=== PATIENT | female | born 1935 | race Caucasian/White ===

== ENCOUNTER → 2017-01-02 | Outpatient (CLI) | payer OTHER ==
--- NOTE | 2017-01-02 13:15 | DIAGNOSTIC IMAGING REPORT ---
CHEST 2 VIEWS ROUTINE CLINICAL HISTORY: I35.1 Aortic insufficiency dyspnea COMPARISON STUDY: 07/02/2014 FINDINGS: The bones soft tissues and hemidiaphragms are normal. The cardiomediastinal silhouette is normal. The lungs are clear. The pulmonary vasculature is normal. IMPRESSION: Negative chest. The above report was generated using voice recognition software. It may contain grammatical, syntax or spelling errors. Electronically signed by: Jose Luis Tapia M.D. 01/02/2017 1:14 PM Dictated Date/Time: 01/02/2017 1:14 PM
[2017-01-02 13:32] LABS: BASO % 0.4 %; BASO ABS # 0.02 K/uL (0-0.2); COMPLETE YES; EOS % 1.1 %; HEMATOCRIT 39.5 % (37-47); LYMPH % 29.6 %; LYMPH ABS # 1.35 K/uL (1.2-3.4); MEAN CELL VOLUME 91.6 fL (80-100); MEAN CORPUSCULAR HEMOGLOBIN 29.5 pg (25-34); MEAN CORPUSCULAR HGB CONC 32.2 g/dl (32-36); MEAN PLATELET VOLUME 10.8 fL (7.4-10.4); MONO % 5.9 %; PLATELET COUNT 170 K/uL (130-400); RED BLOOD COUNT 4.31 M/uL (4.2-5.4); WHITE BLOOD COUNT 4.56 K/uL (4.8-10.8)
== END | disposition home or self-care (01) ==
LOC: C.LAB1850 12:00
PROVIDERS: ATTEND Physician Assistant
DX: I35.1 Nonrheumatic aortic (valve) insufficiency (principal); I10 Essential (primary) hypertension; R63.4 Abnormal weight loss

== ENCOUNTER 2017-09-10 16:44 | Emergency (ER) | payer OTHER ==
[~2017-09-10] VITALS: Ht 154.9 cm; Wt 63.5 kg
--- NOTE | 2017-09-10 16:58 | EMERGENCY ROOM VISIT NOTE ---
History Report prepared by Patria: Nitish Bain Under the Supervision of: Dr. Raul Grimes M.D. First contact with patient: 16:47 Stated Complaint: CHEST & L SHOULDER PAIN History of Present Illness The patient is an 82 year old female who presents to the Emergency Room with complaints of intermittent upper right back pain beginning a few days ago. The patient states she was sitting at a table today putting a puzzle together when her symptoms worsened. She notes she was moving things the other day and hit her back, and she thinks it might of caused her pain. She states she still has mild discomfort in her upper right back. The notes she was given nitroglycerin and aspirin in route, and her symptoms were slightly alleviated. The patient reports she has a history of a heart catheterization. She notes she does not take medications daily, except for aspirin. The patient states she does take herbs but cannot remember which ones. She denies blood in her urine, blood in her stool, missing a dose of aspirin, current chest pain, pain in her left shoulder, and current shortness of breath. The patient is a DNR. Source of History: patient Onset: few days ago Position: back (upper, right) Symptom Intensity: mild Timing: intermittent Modifying Factors (Relieving): other (nitroglycerin and aspirin) Associated Symptoms: + SOB (resolved with nebulizer), No chest pain Note: Denies: blood in her urine, blood in her stool, missing a dose of aspirin, current chest pain, pain in her left shoulder Review of Systems See HPI for pertinent positives and negatives. A total of ten systems were reviewed and were otherwise negative. Past Medical & Surgical Medical Problems: (1) Cataract (2) No Known Active Medical Problems Family History Patient reports no known family medical history. Social History Marital Status: single Occupation Status: retired Current/Historical Medications Scheduled Aspirin (Aspirin Ec), 81 MG PO DAILY Scheduled PRN Cyclobenzaprine Hcl (Flexeril), 1 TAB PO TID PRN for Pain Allergies Coded Allergies: No Known Allergies (Unverified , 09/16/13) Physical Exam Vital Signs Date Time Temp Pulse Resp B/P (MAP) Pulse Ox O2 Delivery O2 Flow Rate FiO2 09/10/17 18:44 36.7 58 16 179/78 98 09/10/17 18:10 58 09/10/17 18:08 64 179/78 09/10/17 17:10 36.7 09/10/17 17:04 59 16 215/86 98 Room Air 09/10/17 17:03 98 Room Air 09/10/17 17:03 98 Room Air 09/10/17 16:57 98 Room Air Physical Exam Physical Exam GENERAL: She is oriented to person, place, and time. She appears well- developed and well-nourished. She does not appear distressed. ____ HENT: Exam performed. Head: Normocephalic and atraumatic. Right Ear: External ear normal. No mastoid tenderness. Left Ear: External ear normal. No mastoid tenderness. Mouth/Throat: The oropharynx is clear and moist. No trismus in the jaw. No dental abscesses or uvula swelling. No oropharyngeal exudate or tonsillar abscesses. ____ EYES: Conjunctivae and EOM are normal. Pupils are equal, round, and reactive to light. Right eye exhibits no discharge. Left eye exhibits no discharge. No scleral icterus. ____ NECK: Normal range of motion. Neck supple. No JVD present. No spinous process tenderness present. No carotid bruit present. No rigidity. No tracheal deviation and normal range of motion present. No Brudzinski's sign and no Kernig 's sign noted. ____ CV: Normal rate, regular rhythm, normal heart sounds and intact distal pulses. There is no peripheral edema. Palpable radial pulses bue. ____ PULM/CHEST: Effort normal and breath sounds normal. No respiratory distress. No stridor. She has no wheezes. She has no rales. Chest Wall: She exhibits no tenderness. ____ ABD: The abdomen is soft. Bowel sounds are normal. She has no distension. No mass is present. There is no tenderness. There is no rebound, no guarding, no Tsang's sign and no tenderness at McBurney's point. Rovsig negative MUSC/SKEL: Normal range of motion. There is no peripheral edema or deformity. No C, T, or L-spine tenderness upon palpation. There is tenderness upon palpation to the right paraspinal thoracic muscles - reproducing the chief complaint. LYMPH: No cervical adenopathy. ____ NEURO: She is alert and oriented to person, place, and time. She has normal strength. No cranial nerve deficit or sensory deficit. Coordination and gait normal. GCS eye subscore is 4. GCS verbal subscore is 5. GCS motor subscore is 6. Cerebellar tests wnl. ____ SKIN: Skin is warm and dry. She is not diaphoretic. ____ PSYCH: She has a normal mood and affect. Her behavior is normal. Judgment and thought content normal. ____ Medical Decision & Procedures ER Provider Diagnostic Interpretation: X-ray: Per my interpretation, radiologist review. TWO VIEW CHEST CLINICAL HISTORY: Atypical chest pain. FINDINGS: PA and lateral chest radiographs are compared to study dated 01/02/2017. The heart is enlarged and there is atherosclerotic calcification of the thoracic aorta. The pulmonary vasculature is noncongested. Chronic interstitial thickening is similar to previous. No airspace consolidation or pleural effusion is identified. There is no pneumothorax. The skeletal structures are osteopenic. Degenerative change and scoliosis are noted throughout the thoracic spine. IMPRESSION: Cardiomegaly with no acute cardiopulmonary abnormality. Electronically signed by: Angelito Zurita M.D. 09/10/2017 5:30 PM Dictated Date/Time: 09/10/2017 5:29 PM Laboratory Results 09/10/17 16:25 Red Blood Count 4.15, Mean Corpuscular Volume 90.1, Mean Corpuscular Hemoglobin 30.4, Mean Corpuscular Hemoglobin Concent 33.7, Mean Platelet Volume 10.7, Neutrophils (%) (Auto) 67.8, Lymphocytes (%) (Auto) 22.2, Monocytes (%) (Auto) 8.5, Eosinophils (%) (Auto) 0.7, Basophils (%) (Auto) 0.5, Neutrophils # (Auto) 4.13, Lymphocytes # (Auto) 1.35, Monocytes # (Auto) 0.52, Eosinophils # (Auto) 0.04, Basophils # (Auto) 0.03 09/10/17 16:25 Test 09/10/17 16:25 White Blood Count 6.09 K/uL (4.8-10.8) Red Blood Count 4.15 M/uL (4.2-5.4) Hemoglobin 12.6 g/dL (12.0-16.0) Hematocrit 37.4 % (37-47) Mean Corpuscular Volume 90.1 fL (80-100) Mean Corpuscular Hemoglobin 30.4 pg (25-34) Mean Corpuscular Hemoglobin Concent 33.7 g/dl (32-36) Platelet Count 165 K/uL (130-400) Mean Platelet Volume 10.7 fL (7.4-10.4) Neutrophils (%) (Auto) 67.8 % Lymphocytes (%) (Auto) 22.2 % Monocytes (%) (Auto) 8.5 % Eosinophils (%) (Auto) 0.7 % Basophils (%) (Auto) 0.5 % Neutrophils # (Auto) 4.13 K/uL (1.4-6.5) Lymphocytes # (Auto) 1.35 K/uL (1.2-3.4) Monocytes # (Auto) 0.52 K/uL (0.11-0.59) Eosinophils # (Auto) 0.04 K/uL (0-0.5) Basophils # (Auto) 0.03 K/uL (0-0.2) RDW Standard Deviation 47.6 fL (36.4-46.3) RDW Coefficient of Variation 14.5 % (11.5-14.5) Immature Granulocyte % (Auto) 0.3 % Immature Granulocyte # (Auto) 0.02 K/uL (0.00-0.02) D-Dimer 190 ug/L FEU (0-500) Anion Gap 6.0 mmol/L (3-11) Est Creatinine Clear Calc Drug Dose 36.5 ml/min Estimated GFR () 61.4 Estimated GFR (Non- 53.0 BUN/Creatinine Ratio 16.8 (10-20) Calcium Level 9.3 mg/dl (8.5-10.1) Troponin I < 0.015 ng/ml (0-0.045) Pro-B-Type Natriuretic Peptide 736 pg/ml (0-1800) Laboratory results reviewed by me ECG Per My Interpretation Indication: back/shoulder pain Rate (beats per minute): 159 Rhythm: sinus rhythm Findings: other ([place], QRS, and QTc are all within normal limits. No ST elevation or depression) ED Course 1625: EMS had called in prior to the patient's arrival stating she was having left shoulder pain and an elevated blood pressure. There is concern for possible STEMI on the initial EKG. EKGs were faxed over from the field. I discussed the patient's case with Dr. Puga, Cardiology. He advised not to call the code STEMI and evaluate the patient when she arrives in the department. 1647: The patient was evaluated in room B08 immediately upon arrival. A complete history and physical exam was performed. Pre-hospital EKG was concerning for biphasic t-waves in lead I, and early repolarization vs ST elevation in V2-V4. Review pre-hospital EKG with Dr. Puga, Cardiology. He advised not to call the code STEMI and evaluate the patient when she arrives in the department. In department EKG showed a Sinus Rhythm with a rate of 159. [place], QRS, and QTc are all within normal limits. No ST elevation or depression. The patient is currently not reporting any pain. No code STEMI was called at this time. A cardiac work-up will be conducted now. 1759: Dr. Puga came down and evaluated the patient and EKG and agrees no STEMI. I reevaluated the patient. Her repeat blood pressure was 188/73. The patient states she does not take anything for her blood pressure. She is reporting no chest pain or shortness of breath. Her back pain got better after taking aspirin. She states she is fine and wants to go home. Her family is at bedside and agrees. The patient and her family agreed to follow up with her PCP. DISCHARGE - Plan of care discussed with patient and questions answered. The patient was given both verbal and printed discharge instructions. The patient verbalized understanding and ability to comply. The patient is to seek outpatient follow up as noted in the discharge instructions. The patient verbalized understanding and ability to comply. The patient is discharged in stable condition. The patient was instructed to return for worsening symptoms. Medical Decision vss. EMS report from the field was L shoulder pain w/ HTN and patient having cardiac history with questionable EKG. Discussed w/ interventional cath, no code STEMI to be called from field. On arrival in ED, patient not reporting any CP or SOB and PE was more consistent w/ back muscle strain. No PE risk factors. Palpable radial pulses bilateral upper extremities palpable DP and PT pulses bilateral lower extremities, no concern for dissection. No significant trauma to the back and no CT or L-spine tenderness, thus imaging of the back was deferred. EKG labs and imaging in the emergency department were within normal limits. Patient's blood pressure normalized on its own, she states she felt fine and wanted to go home. Patient was discharged in stable condition home. Medication Reconcilliation Current Medication List: was personally reviewed by me Blood Pressure Screening Patient's blood pressure: Elevated blood pressure Blood pressure disposition: Referred to PCP Consults Time Called: 1624 Consulting Physician: Dr. Puga, Cardiology Returned Call: 1625 I discussed the patient's case with Dr. Puga, Cardiology. He advised not to call the code STEMI and evaluate the patient when she arrives in the department. Impression Primary Impression: Back strain Scribe Attestation The scribe's documentation has been prepared under my direction and personally reviewed by me in its entirety. I confirm that the note above accurately reflects all work, treatment, procedures, and medical decision making performed by me. The chart was completed utilizing [employer] Speech voice recognition software. Grammatical errors, random word insertions, pronoun errors, and incomplete sentences are an occasional consequence of this system due to software limitations, ambient noise, and hardware issues. Any formal questions or concerns about the content, text, or information contained within the body of this dictation should be directly addressed to the physician for clarification. Departure Information Dispostion Home / Self-Care Prescriptions Cyclobenzaprine Hcl (FLEXERIL) 5 Mg Tab 1 TAB PO TID Y for Pain for 10 Days, #30 TAB Prov: Raul Grimes M.D. 09/10/17 [facility] Forms IMPORTANT VISIT INFORMATION Patient Instructions My [facility], Stretch Shoulder Upper Back Additional Instructions Return immediately to the emergency department if you develop chest pain, difficulty breathing, lose consciousness, cough up blood, blood in your urine, blood in her stool, seizure, or your symptoms return/worsen Problem Qualifiers Primary Impression: Back strain Encounter type: initial encounter Qualified Codes: S39.012A - Strain of muscle, fascia and tendon of lower back, initial encounter
[2017-09-10 17:02] LABS: BASO % 0.5 %; BASO ABS # 0.03 K/uL (0-0.2); EOS % 0.7 %; EOS ABS # 0.04 K/uL (0-0.5); HEMATOCRIT 37.4 % (37-47); HEMOGLOBIN 12.6 g/dL (12.0-16.0); IG# 0.02 K/uL (0.00-0.02); LYMPH % 22.2 %; LYMPH ABS # 1.35 K/uL (1.2-3.4); MEAN CELL VOLUME 90.1 fL (80-100); MEAN CORPUSCULAR HEMOGLOBIN 30.4 pg (25-34); MEAN CORPUSCULAR HGB CONC 33.7 g/dl (32-36); MEAN PLATELET VOLUME 10.7 fL (7.4-10.4); MONO % 8.5 %; MONO ABS # 0.52 K/uL (0.11-0.59); NEUT % 67.8 %; NEUT ABS # 4.13 K/uL (1.4-6.5); PLATELET COUNT 165 K/uL (130-400); RED CELL DISTRIBUTION WIDTH CV 14.5 % (11.5-14.5); RED CELL DISTRIBUTION WIDTH SD 47.6 fL (36.4-46.3); WHITE BLOOD COUNT 6.09 K/uL (4.8-10.8)
[2017-09-10 17:03] VITALS: O2SAT 98
[2017-09-10 17:04] VITALS: Ht 154.9 cm; Wt 63.5 kg
[2017-09-10 17:22] LABS: BLOOD UREA NITROGEN 16 mg/dl (7-18); CALCIUM 9.3 mg/dl (8.5-10.1); CARBON DIOXIDE 28 mmol/L (21-32); CREATININE 0.98 mg/dl (0.60-1.20); GLUCOSE 87 mg/dl (70-99); POTASSIUM 4.5 mmol/L (3.5-5.1); SODIUM 139 mmol/L (136-145)
[2017-09-10] MEDS ORDERED: ASPI81TA28 PO (17:26)
--- NOTE | 2017-09-10 17:31 | DIAGNOSTIC IMAGING REPORT ---
TWO VIEW CHEST CLINICAL HISTORY: Atypical chest pain. FINDINGS: PA and lateral chest radiographs are compared to study dated 01/02/2017. The heart is enlarged and there is atherosclerotic calcification of the thoracic aorta. The pulmonary vasculature is noncongested. Chronic interstitial thickening is similar to previous. No airspace consolidation or pleural effusion is identified. There is no pneumothorax. The skeletal structures are osteopenic. Degenerative change and scoliosis are noted throughout the thoracic spine. IMPRESSION: Cardiomegaly with no acute cardiopulmonary abnormality. Electronically signed by: Angelito Zurita M.D. 09/10/2017 5:30 PM Dictated Date/Time: 09/10/2017 5:29 PM
[2017-09-10] MEDS ORDERED: CYCL5TAB PO (18:37)
[2017-09-10 18:44] VITALS: BP 179/78; PULSE 58; TEMP 36.7; O2SAT 98
== END 2017-09-10 18:45 | disposition home or self-care (01) ==
LOC: EDBD 16:44 → C.EDB 16:46
DX: S39.012A Strain of muscle, fascia and tendon of lower back, initial encounter (principal); X58.XXXA Exposure to other specified factors, initial encounter; Y93.89 Activity, other specified; Y99.8 Other external cause status; H26.9 Unspecified cataract; I10 Essential (primary) hypertension; Z98.890 Other specified postprocedural states; Z66 Do not resuscitate; Z79.82 Long term (current) use of aspirin